=== PATIENT | female | born 1980 | race American Indian/Alaskan Native ===

== ENCOUNTER 2017-02-07 17:07 | Emergency (ER) | payer MEDICAID ==
[2017-02-07] MEDS ORDERED: HYDROGEN PEROXIDE ONE (17:16)
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
[2017-02-07 17:57] LABS: Basophils % (Auto) 0.5 % (0.0-1.8); Eosinophils % (Auto) 0.7 % (0.0-4.3); Hematocrit 36.7 % (30.3-42.9); Hemoglobin 12.1 gm/dl (10.1-14.3); Mean Corpuscular HGB Conc 33 % (30-34); Mean Corpuscular Hemoglobin 30 pg (28-32); Mean Corpuscular Volume 90 fl (79-97); Platelet Count 269 K/mm3 (140-440); Red Blood Count 4.07 M/mm3 (3.65-5.03); Red Cell Distribution Width 14.2 % (13.2-15.2)
[2017-02-07 18:16] LABS: Anion Gap 18 mmol/L; BUN/Creatinine Ratio 12.85; Blood Urea Nitrogen 9 mg/dL (7-17); Calcium 9.3 mg/dL (8.4-10.2); Carbon Dioxide 23 mmol/L (22-30); Chloride 105.4 mmol/L (98-107); Creatine Kinase 66 units/L (30-135); Glucose 122 mg/dL (65-100); Potassium 3.3 mmol/L (3.6-5.0); Sodium 143 mmol/L (137-145)
[2017-02-07 18:20] LABS: INR 0.97 (0.87-1.13)
[2017-02-07 18:21] LABS: Creatine Kinase MB < 1.0 ng/mL (0.0-4.0)
[2017-02-07] MEDS ORDERED: K-DUR PO ONE (20:15)
[2017-02-07] MEDS ORDERED: POTASSIUM CHLORIDE PO ONE (20:17)
[2017-02-07 21:54] VITALS: BP 126/74
--- NOTE | 2017-02-08 08:53 | XRay Report ---
Single view chest: Compared to 11/02/16. History: Shortness of breath. Findings: Normal cardiomediastinal silhouette. Trachea is midline. The tracheostomy tube in normal position. No consolidation, pneumothorax or pleural effusion. Impression: No acute cardiopulmonary findings.
== END 2017-02-07 21:54 | disposition home or self-care (01) ==
LOC: ED 17:07
DX: J95.03 Malfunction of tracheostomy stoma (principal); E87.6 Hypokalemia; I10 Essential (primary) hypertension; R56.9 Unspecified convulsions; Z88.0 Allergy status to penicillin
CPT/HCPCS: 36415; 71010; 80048; 82550; 82553; 84484; 85025; 85610; 93005; 93010

== ENCOUNTER 2017-05-24 02:35 | Emergency (ER) | payer MEDICAID ==
[2017-05-24 04:33] LABS: Basophils % (Auto) 0.3 % (0.0-1.8); Eosinophils % (Auto) 0.7 % (0.0-4.3); Hematocrit 37.9 % (30.3-42.9); Hemoglobin 12.6 gm/dl (10.1-14.3); Mean Corpuscular HGB Conc 33 % (30-34); Mean Corpuscular Hemoglobin 30 pg (28-32); Mean Corpuscular Volume 92 fl (79-97); Platelet Count 244 K/mm3 (140-440); Red Blood Count 4.12 M/mm3 (3.65-5.03); White Blood Count 9.1 K/mm3 (4.5-11.0)
[2017-05-24 04:39] LABS: Alanine Aminotransferase 7 units/L (7-56); Albumin 4.6 g/dL (3.9-5); Albumin/Globulin Ratio 1.2 %; Alkaline Phosphatase 56 units/L (35-129); BUN/Creatinine Ratio 8.57; Blood Urea Nitrogen 6 mg/dL (7-17); Calcium 9.6 mg/dL (8.4-10.2); Carbon Dioxide 31 mmol/L (22-30); Glucose 91 mg/dL (65-100); Total Protein 8.3 g/dL (6.3-8.2)
[2017-05-24 05:02] LABS: Anion Gap 13 mmol/L; Chloride 102.5 mmol/L (98-107); Potassium 4.1 mmol/L (3.6-5.0); Sodium 142 mmol/L (137-145)
[2017-05-24] MEDS ORDERED: ZOFRAN IM ONE (06:28)
[2017-05-24] MEDS ORDERED: LIDOCAINE VISCOUS 2% PO ONE (06:28)
[2017-05-24] MEDS ORDERED: MORPHINE IV ONE (06:28)
--- NOTE | 2017-05-24 06:34 | Emergency Department Report ---
HPI - General Chief Complaint: Dyspnea/Respdistress Time Seen by Provider: 05/24/17 06:13 - HPI HPI: Room 19 The patient is a 37-year-old female presenting with a chief complaint of sore throat. The patient has a history of tracheostomy placed 3 years ago secondary to tracheal damage during intubation for emergency . The patient states yesterday she developed a sore throat with difficulty swallowing. The patient states she has an occasional cough but it hurts when she does. Patient states her cough has been productive of green sputum but this is not a new finding. Patient admits to only having shortness of breath one suctioning. Patient denies shortness of breath at rest. Patient denies chest pain. Patient denies fever, rhinorrhea or sick contacts. Patient states her only complaint is a sore throat at this time. The patient gives her pain a score of 9/10 Location: Throat Duration: Constant since yesterday Quality: Burning/throbbing Severity:9/10 Modifying factors: [see above] Context: [see above] Mode of transportation: [not driving] ED Past Medical Hx - Past Medical History Previous Medical History?: Yes Hx Hypertension: Yes (PIH) Hx Diabetes: Yes (gestational diabetes) Hx Seizures: Yes (with last baby) - Surgical History Past Surgical History?: Yes Additional Surgical History: Tracheostomy 2014 secondary to tracheal damage during intubation for emergency - Family History Family history: no significant - Social History Smoking Status: Never Smoker Substance Use Type: None - Medications Home Medications: Home Medications Medication Instructions Recorded Confirmed Last Taken Type Ibuprofen [Motrin 600 MG tab] 600 mg PO Q8H PRN #30 tablet 12/08/15 Unknown Rx Multivitamin with Iron [Tab-A-Sharmaine 1 each PO DAILY #30 tablet 12/08/15 Unknown Rx with Iron] oxyCODONE /ACETAMINOPHEN [Percocet 1 tab PO Q6HR PRN #30 tablet 12/08/15 Unknown Rx 5/325] Potassium Chloride 20 meq PO QDAY #4 packet 02/07/17 Unknown Rx Azithromycin [Zithromax Z-MITCH] 0 mg PO DAILY #6 tab 05/24/17 Unknown Rx HYDROcodone/APAP 5-325 [[place] 1 - 2 each PO Q6HR PRN #14 tablet 05/24/17 Unknown Rx 5/325] Ibuprofen [Motrin 800 MG tab] 800 mg PO Q8HR PRN #20 tablet 05/24/17 Unknown Rx ED Review of Systems ROS: Stated complaint: THROAT PAIN, SWELLING Other details as noted in HPI Comment: All other systems reviewed and negative Constitutional: denies: chills, fever Eyes: denies: eye pain, eye discharge, vision change ENT: throat pain Respiratory: cough, shortness of breath Cardiovascular: denies: chest pain, palpitations Endocrine: no symptoms reported Gastrointestinal: denies: abdominal pain, nausea, diarrhea Genitourinary: denies: urgency, dysuria, discharge Musculoskeletal: denies: back pain, joint swelling, arthralgia Skin: denies: rash, lesions Neurological: denies: headache, weakness, paresthesias Psychiatric: denies: anxiety, depression Hematological/Lymphatic: denies: easy bleeding, easy bruising Physical Exam - Physical Exam Vital Signs: Vital Signs 05/24/17 05/24/17 05/24/17 02:45 04:55 05:20 Temperature 98.9 F 97.6 F Pulse Rate 67 69 Respiratory 20 20 Rate Blood Pressure 150/105 Blood Pressure 175/95 [Left] O2 Sat by Pulse 100 100 100 Oximetry O2 Sat by Pulse Oximetry [ Assessment] 05/24/17 05:22 Temperature Pulse Rate Respiratory Rate Blood Pressure Blood Pressure [Left] O2 Sat by Pulse Oximetry O2 Sat by Pulse 100 Oximetry [ Assessment] Physical Exam: GENERAL: The patient is well-developed well-nourished female lying on stretcher not appearing to be in acute distress. [] HEENT: Normocephalic. Atraumatic. Extraocular motions are intact. Patient has moist mucous membranes. Mild erythema to the left oropharynx. No exudate seen. Uvula midline NECK: Supple. No meningitic signs are noted. There is no adenopathy noted. CHEST/LUNGS: Clear to auscultation. There is no respiratory distress noted. HEART/CARDIOVASCULAR: Regular. There is no tachycardia. There is no gallop rub or murmur. ABDOMEN: Abdomen is soft, nontender. Patient has normal bowel sounds. There is no abdominal distention. SKIN: There is no rash. There is no edema. There is no diaphoresis. NEURO: The patient is awake, alert, and oriented. The patient is cooperative. MUSCULOSKELETAL: There is no evidence of acute injury. ED Course Vital Signs 05/24/17 05/24/17 05/24/17 02:45 04:55 05:20 Temperature 98.9 F 97.6 F Pulse Rate 67 69 Respiratory 20 20 Rate Blood Pressure 150/105 Blood Pressure 175/95 [Left] O2 Sat by Pulse 100 100 100 Oximetry O2 Sat by Pulse Oximetry [ Assessment] 05/24/17 05:22 Temperature Pulse Rate Respiratory Rate Blood Pressure Blood Pressure [Left] O2 Sat by Pulse Oximetry O2 Sat by Pulse 100 Oximetry [ Assessment] ED Medical Decision Making - Lab Data Result diagrams: 05/24/17 03:27 05/24/17 03:27 Laboratory Tests 05/24/17 05/24/17 05/24/17 03:27 03:27 03:27 WBC 9.1 RBC 4.12 Hgb 12.6 Hct 37.9 MCV 92 MCH 30 MCHC 33 RDW 15.0 Plt Count 244 Lymph % (Auto) 35.3 H [place] % (Auto) 7.9 H Eos % (Auto) 0.7 Baso % (Auto) 0.3 Lymph # 3.2 [place] # 0.7 Eos # 0.1 Baso # 0.0 Seg Neutrophils % 55.8 Seg Neutrophils # 5.1 D-Dimer 398.62 H Sodium 142 Potassium 4.1 Chloride 102.5 Carbon Dioxide 31 H Anion Gap 13 BUN 6 L Creatinine 0.7 Estimated GFR > 60 BUN/Creatinine Ratio 8.57 Glucose 91 Calcium 9.6 Total Bilirubin 0.40 AST 9 ALT 7 Alkaline Phosphatase 56 Troponin T < 0.010 Total Protein 8.3 H Albumin 4.6 Albumin/Globulin Ratio 1.2 - Radiology Data Radiology results: image reviewed (chest x-ray, lateral soft tissue neck x-ray) interpreted by me: Chest x-ray-no focal infiltrates, no pneumothorax Lateral soft tissue neck x-ray-no prevertebral swelling - Medical Decision Making Patient's chief complaint is sore throat. Patient denies shortness of breath at rest or outside of tracheal suctioning. Patient denies chest pain. D-dimer was ordered prior to my arrival. Although it is slightly elevated I do not believe the patient's presentation is consistent with a PE subsequently I will not unnecessarily order a CT angiogram of the chest. I explained this to the patient and family. - Differential Diagnosis pharyngitis, tonsillitis, retropharyngeal abscess Critical care attestation.: If time is entered above; I have spent that time in minutes in the direct care of this critically ill patient, excluding procedure time. ED Disposition Clinical Impression: Pharyngitis, acute Disposition: DC-01 TO HOME OR SELFCARE Is pt being admited?: No Does the pt Need Aspirin: No Condition: Stable Instructions: Pharyngitis (ED) Additional Instructions: Return to the emergency department immediately should you develop worsening symptoms, fever, inability to tolerate food or liquid or any other concerns. Prescriptions: Azithromycin [Zithromax Z-MITCH] 0 mg PO DAILY #6 tab HYDROcodone/APAP 5-325 [[place] 5/325] 1 - 2 each PO Q6HR PRN #14 tablet PRN Reason: Pain Ibuprofen [Motrin 800 MG tab] 800 mg PO Q8HR PRN #20 tablet PRN Reason: Pain Referrals: PRIMARY CARE, [Primary Care Provider] - 3-5 Days VICKIE GARY MD [Staff Physician] - 3-5 Days (Dr. Gary is a patrol deputy sheriff. Please follow up with him for further evaluation) NIR MACKENZIE MD [Staff Physician] - 3-5 Days (Dr. Mackenzie is a primary doctor. Please follow up with him for further evaluation) Time of Disposition: 07:26
--- NOTE | 2017-05-24 07:30 | XRay Report ---
ROUTINE CHEST, TWO VIEWS: HISTORY: Dyspnea. A tracheostomy is in good position. The trachea, heart, mediastinal contour, lung perez and bony thorax are unremarkable. IMPRESSION: Unremarkable chest x-ray. No significant change since 02/07/17.
--- NOTE | 2017-05-24 07:30 | XRay Report ---
AP AND LATERAL SOFT TISSUES OF THE NECK: History: Sore throat, pain, swelling. A tracheostomy appears in adequate position terminating in the mid trachea. The contour of the upper airway appears within normal limits. The epiglottis is not enlarged. No prevertebral soft tissue swelling is apparent. No mass density or foreign body is evident. IMPRESSION: Unremarkable exam.
[2017-05-24 08:31] VITALS: BP 139/84
== END 2017-05-24 08:32 | disposition home or self-care (01) ==
LOC: ED 02:35
DX: J02.9 Acute pharyngitis, unspecified (principal); I10 Essential (primary) hypertension
CPT/HCPCS: 36415; 70360; 71020; 80053; 84484; 85025; 85379; 94760; 96372; 96374; 99285; J2270; J2405

== ENCOUNTER 2017-09-17 07:22 | Emergency (ER) | payer MEDICAID ==
--- NOTE | 2017-09-17 12:20 | Emergency Department Report ---
ED General Adult HPI - General Chief complaint: Neck Pain/Injury Stated complaint: TRACHEOTOMY BLEEDING Time Seen by Provider: 09/17/17 12:14 Source: patient, RN notes reviewed, old records reviewed Mode of arrival: Ambulatory Limitations: No Limitations - History of Present Illness Initial comments: This is a 37-year-old female who was previously unknown to this provider. Patient has a history of indwelling tracheostomy for a few years secondary to tracheal damage during an intubation for an emergency . This was in [place]. The patient does not have a local primary care doctor, biztalk software developer or all source analyst. She has a 6 0 uncuffed tracheostomy tube. Patient does not have any home care services to help clean it, and it was last changed in February. Patient presents to the ER with painless bleeding from tracheostomy site. She reports that she is coughing up blood from her tracheostomy site. She is cleaning it every now and then with peroxide. No headache, chest pain, abdominal pain, shortness of breath, fevers or chills. Her symptoms are constant for the past day or so, they do not have exacerbating or relieving factors. -: Gradual Location: neck Radiation: non-radiation Consistency: constant Improves with: none Worsens with: none Associated Symptoms: cough - Related Data Previous Rx's Medication Instructions Recorded Last Taken Type Ibuprofen [Motrin 600 MG tab] 600 mg PO Q8H PRN #30 tablet 12/08/15 Unknown Rx Multivitamin with Iron [Tab-A-Sharmaine 1 each PO DAILY #30 tablet 12/08/15 Unknown Rx with Iron] oxyCODONE /ACETAMINOPHEN [Percocet 1 tab PO Q6HR PRN #30 tablet 12/08/15 Unknown Rx 5/325] Potassium Chloride 20 meq PO QDAY #4 packet 02/07/17 Unknown Rx Azithromycin [Zithromax Z-MITCH] 0 mg PO DAILY #6 tab 05/24/17 Unknown Rx HYDROcodone/APAP 5-325 [Linn 1 - 2 each PO Q6HR PRN #14 tablet 05/24/17 Unknown Rx 5/325] Ibuprofen [Motrin 800 MG tab] 800 mg PO Q8HR PRN #20 tablet 05/24/17 Unknown Rx Allergies Allergy/AdvReac Type Severity Reaction Status Date / Time Penicillins Allergy Swelling Verified 12/07/15 23:16 ED Review of Systems ROS: Stated complaint: TRACHEOTOMY BLEEDING Other details as noted in HPI Constitutional: denies: fever Eyes: denies: vision change ENT: as per HPI, throat pain. denies: epistaxis, congestion Respiratory: cough Cardiovascular: denies: chest pain Gastrointestinal: denies: nausea, vomiting Genitourinary: denies: dysuria Musculoskeletal: as per HPI Skin: as per HPI Neurological: as per HPI Psychiatric: anxiety ED Past Medical Hx - Past Medical History Hx Hypertension: Yes (PIH) Hx Congestive Heart Failure: No Hx Diabetes: Yes (gestational diabetes) Hx Deep Vein Thrombosis: No Hx Renal Disease: No Hx Sickle Cell Disease: No Hx Seizures: Yes (with last baby) Hx Asthma: No Hx COPD: No Hx HIV: No - Surgical History Additional Surgical History: Tracheostomy 2014 secondary to tracheal damage during intubation for emergency - Social History Smoking Status: Never Smoker Substance Use Type: None - Medications Home Medications: Home Medications Medication Instructions Recorded Confirmed Last Taken Type Ibuprofen [Motrin 600 MG tab] 600 mg PO Q8H PRN #30 tablet 12/08/15 Unknown Rx Multivitamin with Iron [Tab-A-Sharmaine 1 each PO DAILY #30 tablet 12/08/15 Unknown Rx with Iron] oxyCODONE /ACETAMINOPHEN [Percocet 1 tab PO Q6HR PRN #30 tablet 12/08/15 Unknown Rx 5/325] Potassium Chloride 20 meq PO QDAY #4 packet 02/07/17 Unknown Rx Azithromycin [Zithromax Z-MITCH] 0 mg PO DAILY #6 tab 05/24/17 Unknown Rx HYDROcodone/APAP 5-325 [Linn 1 - 2 each PO Q6HR PRN #14 tablet 05/24/17 Unknown Rx 5/325] Ibuprofen [Motrin 800 MG tab] 800 mg PO Q8HR PRN #20 tablet 05/24/17 Unknown Rx ED Physical Exam - General Limitations: No Limitations General appearance: alert, in no apparent distress - Head Head exam: Present: atraumatic, normocephalic - Eye Eye exam: Present: normal appearance, EOMI. Absent: nystagmus - ENT ENT exam: Present: normal exam, normal orophraynx, mucous membranes moist - Neck Neck exam: Present: normal inspection, full ROM, other (there is a 6 uncuffed tracheostomy tube noted in the neck, with no redness, pus or streaking) - Respiratory Respiratory exam: Present: normal lung sounds bilaterally. Absent: respiratory distress, wheezes, rales, rhonchi, stridor, chest wall tenderness, accessory muscle use - Cardiovascular Cardiovascular Exam: Present: regular rate, normal rhythm, normal heart sounds. Absent: systolic murmur, diastolic murmur, rubs, gallop - GI/Abdominal GI/Abdominal exam: Present: soft, normal bowel sounds. Absent: distended, tenderness, guarding, rebound, rigid, pulsatile mass - Extremities Exam Extremities exam: Present: normal inspection, full ROM, normal capillary refill. Absent: pedal edema, joint swelling, calf tenderness - Back Exam Back exam: Present: normal inspection, full ROM. Absent: tenderness, CVA tenderness (R), paraspinal tenderness, vertebral tenderness - Neurological Exam Neurological exam: Present: alert, other (Extraocular movements intact. Tongue midline. No facial droop. Facial sensation intact to light touch in the V1, V2 , V3 distribution bilaterally. 5 and 5 strength in 4 extremities.. Sensation is intact to light touch in 4 extremities.). Absent: motor sensory deficit - Psychiatric Psychiatric exam: Present: normal affect, normal mood - Skin Skin exam: Present: warm, dry, intact, normal color. Absent: rash ED Course Vital Signs 09/17/17 09/17/17 09/17/17 07:29 12:20 12:30 Temperature 98.5 F Pulse Rate 62 Respiratory Rate Blood Pressure 146/93 162/99 Blood Pressure [Left] O2 Sat by Pulse 100 100 100 Oximetry 09/17/17 09/17/17 09/17/17 12:46 13:00 13:04 Temperature 98.2 F Pulse Rate 84 Respiratory 18 Rate Blood Pressure 162/99 171/95 Blood Pressure 151/85 [Left] O2 Sat by Pulse 100 98 99 Oximetry 09/17/17 09/17/17 13:16 13:30 Temperature Pulse Rate Respiratory Rate Blood Pressure 171/95 171/95 Blood Pressure [Left] O2 Sat by Pulse 99 99 Oximetry ED Medical Decision Making - Lab Data Vital Signs 09/17/17 09/17/17 09/17/17 07:29 12:20 12:30 Temperature 98.5 F Pulse Rate 62 Blood Pressure 146/93 162/99 O2 Sat by Pulse 100 100 100 Oximetry - Radiology Data Radiology results: image reviewed interpreted by me: X-ray of the chest demonstrates no acute disease, no pneumonia, a tracheostomy tube is noted to be in appropriate position - Medical Decision Making Differential diagnosis, including but not limited to: Improper tracheostomy care , pneumonia, bronchiectasis, bronchitis Assessment and plan: 37-year-old female with complaint of coughing up blood from her tracheostomy tube. Patient is seen by myself and respiratory therapy. Her tracheostomy tube was suctioned. No blood comes out of it. Her tracheostomy tube is replaced. The patient has not been caring for her tube appropriately. She is not cleaning it daily. She also does not have home health services available to assist in cleaning. I contacted case management to address this. They're going to address it. The patient was educated by respiratory therapy how to clean her tube, how to care for, how often to clean it. She is afebrile with reassuring vital signs with the exception of elevated blood pressure. She does not work or laboratory studies, her x-ray of the chest is unremarkable, and she appears to be quite comfortable playing on a cellular phone, and interacting with a close friend. She will be discharged medically, she is suitable to follow up with outpatient primary care doctor and biztalk software developer. Critical care attestation.: If time is entered above; I have spent that time in minutes in the direct care of this critically ill patient, excluding procedure time. ED Disposition Clinical Impression: Encounter for tracheostomy tube change Disposition: DC-01 TO HOME OR SELFCARE Is pt being admited?: No Does the pt Need Aspirin: No Condition: Good Instructions: Tracheostomy Care (ED), Tracheotomy (ED) Additional Instructions: Continue current outpatient medications. Follow up with a primary care doctor within the next month. Follow up with either a biztalk software developer or all source analyst for continued outpatient care via tracheostomy within the next 6 weeks. Wash the tracheostomy tube at least once daily with gentle water and soap. Use the scrub brush as directed. Do not use peroxide to clean the tube. Return to the ER right away with fevers , chills, chest pain, shortness of breath, intractable nausea or vomiting, confusion, inability to tolerate liquid feeds, weakness/numbness. Referrals: PRIMARY CARE, [Primary Care Provider] - 3-5 Days VICKIE GARY MD [Staff Physician] - 3-5 Days ISRAEL CLARK MD [Staff Physician] - 3-5 Days ARLENE REYNA MD [Staff Physician] - 3-5 Days
--- NOTE | 2017-09-17 13:25 | XRay Report ---
Single view chest: Compared to 05/24/17. History: Coughing up blood. Tracheostomy. Findings: Normal cardiomediastinal silhouette. Trachea is midline. No consolidation, pneumothorax or pleural effusion. Impression: No acute cardiopulmonary findings.
[2017-09-17 13:42] VITALS: BP 171/95
== END 2017-09-17 13:41 | disposition home or self-care (01) ==
LOC: ED 07:22
DX: J95.01 Hemorrhage from tracheostomy stoma (principal); I10 Essential (primary) hypertension
CPT/HCPCS: 71010

== ENCOUNTER 2017-09-20 02:16 | Emergency (ER) | payer MEDICAID ==
[2017-09-20 03:09] LABS: Basophils % (Auto) 0.9 % (0.0-1.8); Eosinophils % (Auto) 1.9 % (0.0-4.3); Hematocrit 36.9 % (30.3-42.9); Mean Corpuscular HGB Conc 33 % (30-34); Mean Corpuscular Hemoglobin 30 pg (28-32); Mean Corpuscular Volume 93 fl (79-97); Platelet Count 288 K/mm3 (140-440); Red Blood Count 3.97 M/mm3 (3.65-5.03); Red Cell Distribution Width 14.1 % (13.2-15.2); White Blood Count 7.4 K/mm3 (4.5-11.0)
[2017-09-20 03:23] LABS: BUN/Creatinine Ratio 12; Blood Urea Nitrogen 7 mg/dL (7-17); Calcium 9.5 mg/dL (8.4-10.2); Carbon Dioxide 29 mmol/L (22-30); Glucose 101 mg/dL (65-100)
[2017-09-20 03:24] LABS: Anion Gap 16 mmol/L; Chloride 100.6 mmol/L (98-107); Potassium 3.6 mmol/L (3.6-5.0); Sodium 142 mmol/L (137-145)
--- NOTE | 2017-09-20 03:48 | XRay Report ---
FINAL REPORT EXAM: XR NECK SOFT TISSUE HISTORY: neck swelling TECHNIQUE: AP and lateral views of the soft tissues of the neck were obtained. FINDINGS: The hypopharynx appears normal. The epiglottis is not enlarged. The subglottic airway appears normal. The pre vertebral soft tissues are normal in thickness. There is no evidence of radiopaque foreign body. There is a tracheostomy tube in good position. The skeletal structures appear normal. IMPRESSION: Tracheostomy tube in good position. Otherwise unremarkable exam.
[2017-09-20] MEDS ORDERED: DILAUDID IV ONE (06:37)
--- NOTE | 2017-09-20 06:41 | Emergency Department Report ---
HPI - General Chief Complaint: Neck Pain/Injury Time Seen by Provider: 09/20/17 06:15 - HPI HPI: This is a 37-year-old Afro-[place] female presents to the emergency department from home with complaint of some bleeding from her tracheostomy that occurs when she coughs or suctions. She is from [place] and has had this tracheostomy in place for a couple of years since there was some complications from an intubation from an emergency that she had down there. The patient was also here on Wednesday, 3-4 days ago, for similar symptoms. Since she is not from this area, she does not yet have a primary care doctor, certified paralegal or anyone for immediate follow-up. She denies any chest pain, shortness of breath, nausea, vomiting. She has not taken anything for her symptoms prior to presentation. ED Past Medical Hx - Past Medical History Hx Hypertension: Yes (PIH) Hx Congestive Heart Failure: No Hx Diabetes: Yes (gestational diabetes) Hx Deep Vein Thrombosis: No Hx Renal Disease: No Hx Sickle Cell Disease: No Hx Seizures: Yes (with last baby) Hx Asthma: No Hx COPD: No Hx HIV: No - Surgical History Additional Surgical History: 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 for emergency - Social History Smoking Status: Never Smoker Substance Use Type: None - Medications Home Medications: Home Medications Medication Instructions Recorded Confirmed Last Taken Type Ibuprofen [Motrin 600 MG tab] 600 mg PO Q8H PRN #30 tablet 12/08/15 Unknown Rx Multivitamin with Iron [Tab-A-Sharmaine 1 each PO DAILY #30 tablet 12/08/15 Unknown Rx with Iron] oxyCODONE /ACETAMINOPHEN [Percocet 1 tab PO Q6HR PRN #30 tablet 12/08/15 Unknown Rx 5/325] Potassium Chloride 20 meq PO QDAY #4 packet 02/07/17 Unknown Rx Azithromycin [Zithromax Z-MITCH] 0 mg PO DAILY #6 tab 05/24/17 Unknown Rx Ibuprofen [Motrin 800 MG tab] 800 mg PO Q8HR PRN #20 tablet 05/24/17 Unknown Rx HYDROcodone/APAP 5-325 [Jennings 1 each PO Q6HR PRN #10 tablet 09/20/17 Unknown Rx 5-325 mg TAB] ED Review of Systems ROS: Stated complaint: NECK SWELLING,TRACHE BLEEDING Other details as noted in HPI Comment: All other systems reviewed and negative Constitutional: denies: chills, fever Eyes: denies: eye pain, eye discharge, vision change ENT: throat pain (tightness to neck, bleeding from trach). denies: ear pain Respiratory: denies: cough, shortness of breath, wheezing Cardiovascular: denies: chest pain, palpitations Gastrointestinal: denies: abdominal pain, nausea, diarrhea Genitourinary: denies: urgency, dysuria, discharge Musculoskeletal: denies: back pain, joint swelling, arthralgia Skin: denies: rash, lesions Neurological: denies: headache, weakness, paresthesias Physical Exam - Physical Exam Vital Signs: Vital Signs 09/20/17 09/20/17 09/20/17 02:19 02:40 05:31 Temperature 99.1 F 99.1 F 98.2 F Pulse Rate 69 66 77 Respiratory 16 18 Rate Blood Pressure 144/90 144/90 Blood Pressure 148/96 [Left] O2 Sat by Pulse 99 100 100 Oximetry O2 Sat by Pulse Oximetry [ Assessment] 09/20/17 09/20/17 09/20/17 05:33 05:50 06:30 Temperature Pulse Rate 65 Respiratory 16 16 Rate Blood Pressure Blood Pressure 153/99 [Left] O2 Sat by Pulse 100 100 Oximetry O2 Sat by Pulse 100 Oximetry [ Assessment] Physical Exam: GENERAL: The patient is well-developed well-nourished. HENT: Normocephalic. Atraumatic. Patient has moist mucous membranes. EYES: Extraocular motions are intact. Pupils equal reactive to light bilaterally. NECK: Supple. Trachea is midline. There is a tracheostomy and collar in place. There is a small amount of blood-tinged sputum seen in the tracheostomy tube. CHEST/LUNGS: Clear to auscultation. There is no respiratory distress noted. HEART/CARDIOVASCULAR: Regular. There is no tachycardia. There is no gallop rub or murmur. ABDOMEN: Abdomen is soft, nontender. Patient has normal bowel sounds. There is no abdominal distention. SKIN: Skin is warm and dry. NEURO: The patient is awake, alert, and oriented. The patient is cooperative. The patient has no focal neurologic deficits. MUSCULOSKELETAL: There is no tenderness or deformity. There is no limitation range of motion. There is no evidence of acute injury. ED Course Vital Signs 09/20/17 09/20/17 09/20/17 02:19 02:40 05:31 Temperature 99.1 F 99.1 F 98.2 F Pulse Rate 69 66 77 Respiratory 16 18 Rate Blood Pressure 144/90 144/90 Blood Pressure 148/96 [Left] O2 Sat by Pulse 99 100 100 Oximetry O2 Sat by Pulse Oximetry [ Assessment] 09/20/17 09/20/17 09/20/17 05:33 05:50 06:30 Temperature Pulse Rate 65 Respiratory 16 16 Rate Blood Pressure Blood Pressure 153/99 [Left] O2 Sat by Pulse 100 100 Oximetry O2 Sat by Pulse 100 Oximetry [ Assessment] ED Medical Decision Making - Lab Data Result diagrams: 09/20/17 02:55 09/20/17 02:55 - Radiology Data Radiology results: report reviewed, image reviewed interpreted by me: X-ray of the neck does not show any foreign body, signs of obstruction and the tracheostomy appears to be in place. EXAM: CT NECK WO CON HISTORY: tracheostomy, neck tightness, bleeding from trach TECHNIQUE: Routine axial imaging was obtained of the soft tissues of the neck without IV contrast with sagittal and coronal reconstructions. FINDINGS: There is a tracheostomy tube in good position. The overall airway otherwise appears normal. The thyroid gland appears normal. The retropharyngeal space appears normal. The parotid and submandibular glands appear normal. There is no evidence of pathologically enlarged lymph nodes in the neck. There benign-appearing lymph nodes in the submandibular chains bilaterally. Along the skullbase the visualized sinuses are clear. The mastoid air cells are well pneumatized. The lung apices are clear. The skeletal structures are unremarkable. IMPRESSION: Tracheostomy appears in good position. No source is identified to account for the patient's bleeding. No acute process identified in the soft tissues of the neck. - Medical Decision Making This is a 37-year-old female with a chronic tracheostomy, tube and collar who has been having some issues with some bleeding from the trach with coughing and suction. She was seen here for similar a few days ago but has not yet been able to see a certified paralegal. Vital signs stable throughout her ED course including being afebrile. Labs are unremarkable including no anemia secondary to this bleeding. An x-ray was done that does not show any acute process. Since this is the second visit for her same symptoms, a CT of the neck was done that shows the tracheostomy in appropriate place without any source of the bleeding. Respiratory therapy came down and did some tracheostomy care. Otherwise the patient appears stable and safe for discharge home at this time. She was once again given referrals for ENT and encouraged to return to the emergency Department with any worsening bleeding, any respiratory distress, worsening of her symptoms or any acute distress. Discharge instructions were given within the emergency department and all questions have been answered. Critical Care Time: No Critical care attestation.: If time is entered above; I have spent that time in minutes in the direct care of this critically ill patient, excluding procedure time. ED Disposition Clinical Impression: Tracheostomy care, Neck tightness Disposition: TO HOME OR SELFCARE Is pt being admited?: No Condition: Stable Instructions: Tracheostomy Care (ED) Additional Instructions: Please follow up with a primary care physician in the next few days. I have given him multiple referrals for ear nose throat/otolaryngology physicians to follow up regarding your tracheostomy and recent bleeding and/or discomfort. Return to the emergency department with any worsening of your symptoms or any acute distress. You have been prescribed a medication that is sedating and therefore should not be taken prior to driving, working, and responsible for children and in no way should be mixed with alcohol of any quantity. Prescriptions: HYDROcodone/APAP 5-325 [Jennings 5-325 mg TAB] 1 each PO Q6HR PRN #10 tablet PRN Reason: Pain Referrals: PRIMARY MD ERIC [Primary Care Provider] - 3-5 Days CHRYSTAL GOLDSMITH MD [Staff Physician] - 3-5 Days RICHI ALLEN MD [Staff Physician] - 3-5 Days ISRAEL CLARK MD [Staff Physician] - 3-5 Days Time of Disposition: 08:57
[2017-09-20] MEDS ORDERED: PERCOCET 5/325 PO ONE (06:49)
[2017-09-20] MEDS ORDERED: PERCOCET 5/325 ONE (06:50)
--- NOTE | 2017-09-20 07:14 | Cat Scan Report ---
FINAL REPORT EXAM: CT NECK WO CON HISTORY: tracheostomy, neck tightness, bleeding from trach TECHNIQUE: Routine axial imaging was obtained of the soft tissues of the neck without IV contrast with sagittal and coronal reconstructions. FINDINGS: There is a tracheostomy tube in good position. The overall airway otherwise appears normal. The thyroid gland appears normal. The retropharyngeal space appears normal. The parotid and submandibular glands appear normal. There is no evidence of pathologically enlarged lymph nodes in the neck. There benign-appearing lymph nodes in the submandibular chains bilaterally. Along the skullbase the visualized sinuses are clear. The mastoid air cells are well pneumatized. The lung apices are clear. The skeletal structures are unremarkable. IMPRESSION: Tracheostomy appears in good position. No source is identified to account for the patient's bleeding. No acute process identified in the soft tissues of the neck.
[2017-09-20] MEDS ORDERED: HYDROGEN PEROXIDE ONE (08:38)
[2017-09-20] MEDS ORDERED: HYDROGEN PEROXIDE TP ONE (08:38)
[2017-09-20 09:07] VITALS: BP 133/88
== END 2017-09-20 09:06 | disposition home or self-care (01) ==
LOC: ED 02:16
DX: J95.01 Hemorrhage from tracheostomy stoma (principal); M43.6 Torticollis; I10 Essential (primary) hypertension
CPT/HCPCS: 36415; 70360; 70490; 80048; 84703; 85025

== ENCOUNTER 2018-03-29 18:50 | Emergency (ER) | payer MEDICAID | END 2018-03-29 19:50 | disposition left against medical advice (07) | LOC: ED 18:50 | DX: R42 Dizziness and giddiness (principal); M79.1 Myalgia; Z88.0 Allergy status to penicillin; Z53.21 Procedure and treatment not carried out due to patient leaving prior to being seen by health care provider ==

== ENCOUNTER 2018-04-12 23:26 | Emergency (ER) | payer SELFPAY ==
[2018-04-13 02:22] VITALS: BP 124/88
== END 2018-04-13 07:15 | disposition left against medical advice (07) ==
LOC: ED 23:26
DX: J02.9 Acute pharyngitis, unspecified (principal); Z53.21 Procedure and treatment not carried out due to patient leaving prior to being seen by health care provider
CPT/HCPCS: 87116; 87430

== ENCOUNTER 2018-05-20 17:38 | Emergency (ER) | payer SELFPAY ==
--- NOTE | 2018-05-21 01:05 | Emergency Department Report ---
ED ENT HPI - General Chief complaint: Dental/Oral Stated complaint: TOOTHACHE Time Seen by Provider: 05/21/18 00:50 Source: patient, family Mode of arrival: Ambulatory Limitations: No Limitations - History of Present Illness Initial comments: This is 38-year-old female here report that she is having right upper tooth pain and facial pain from dental problems. She says she might be but she does not know how far she is. She is not having any related problems. Last initial period was exposed 10/27/2018. She says she does not have [facility]PORT [facility]ER or primary care physician. Denies any abdominal or back pain. Denies any vaginal bleed or discharge. Denies any nausea or vomiting. Denies any fever or chills. Denies any sore throat, nasal congestion or runny nose. Denies any drooling. Pain is 10/10 and aching and exacerbated by eating and no alleviating factor. She says she is taking an [id number] pain medication without any relief. This started 2 days ago. MD complaint: tooth pain Onset/Timin -: days(s) Location: tooth # 1 - Tooth #1 and 2 with pain. Severity: severe Severity scale (0 -10): 10 Quality: aching Improves with: none Worsens with: eating Context- Dental: history of dental caries, poor dental care Associated Symptoms: toothache. denies: fever, cough, gum swelling, pain with swallowing, sore throat, tinnitus, hearing loss, discharge from ear, rhinorrhea - Related Data Previous Rx's Medication Instructions Recorded Last Taken Type Ibuprofen [Motrin 600 MG tab] 600 mg PO Q8H PRN #30 tablet 12/08/15 Unknown Rx Multivitamin with Iron [Tab-A-Sharmaine 1 each PO DAILY #30 tablet 12/08/15 Unknown Rx with Iron] oxyCODONE /ACETAMINOPHEN [Percocet 1 tab PO Q6HR PRN #30 tablet 12/08/15 Unknown Rx 5/325] Potassium Chloride 20 meq PO QDAY #4 packet 02/07/17 Unknown Rx Azithromycin [Zithromax Z-MITCH] 0 mg PO DAILY #6 tab 05/24/17 Unknown Rx Ibuprofen [Motrin 800 MG tab] 800 mg PO Q8HR PRN #20 tablet 05/24/17 Unknown Rx HYDROcodone/APAP 5-325 [[place] 1 each PO Q6HR PRN #10 tablet 09/20/17 Unknown Rx 5-325 mg TAB] Acetaminophen 20 ml PO Q8H PRN #300 oral.susp 05/21/18 Unknown Rx Acetaminophen with Codeine 5 ml PO Q12H PRN 2 Days #20 05/21/18 Unknown Rx [Acetaminop-Codeine 120-12 mg/5] solution Clindamycin Palmitate HCl 20 ml PO Q8H 10 Days #600 ml 05/21/18 Unknown Rx [Clindamycin Pediatric] Allergies Allergy/AdvReac Type Severity Reaction Status Date / Time Penicillins Allergy Swelling Verified 12/07/15 23:16 ED Dental HPI - General Chief complaint: Dental/Oral Stated complaint: TOOTHACHE Time Seen by Provider: 05/21/18 00:50 Source: patient Mode of arrival: Ambulatory Limitations: No Limitations - Related Data Previous Rx's Medication Instructions Recorded Last Taken Type Ibuprofen [Motrin 600 MG tab] 600 mg PO Q8H PRN #30 tablet 12/08/15 Unknown Rx Multivitamin with Iron [Tab-A-Sharmaine 1 each PO DAILY #30 tablet 12/08/15 Unknown Rx with Iron] oxyCODONE /ACETAMINOPHEN [Percocet 1 tab PO Q6HR PRN #30 tablet 12/08/15 Unknown Rx 5/325] Potassium Chloride 20 meq PO QDAY #4 packet 02/07/17 Unknown Rx Azithromycin [Zithromax Z-MITCH] 0 mg PO DAILY #6 tab 05/24/17 Unknown Rx Ibuprofen [Motrin 800 MG tab] 800 mg PO Q8HR PRN #20 tablet 05/24/17 Unknown Rx HYDROcodone/APAP 5-325 [[place] 1 each PO Q6HR PRN #10 tablet 09/20/17 Unknown Rx 5-325 mg TAB] Acetaminophen 20 ml PO Q8H PRN #300 oral.susp 05/21/18 Unknown Rx Acetaminophen with Codeine 5 ml PO Q12H PRN 2 Days #20 05/21/18 Unknown Rx [Acetaminop-Codeine 120-12 mg/5] solution Clindamycin Palmitate HCl 20 ml PO Q8H 10 Days #600 ml 05/21/18 Unknown Rx [Clindamycin Pediatric] Allergies Allergy/AdvReac Type Severity Reaction Status Date / Time Penicillins Allergy Swelling Verified 12/07/15 23:16 ED Review of Systems ROS: Stated complaint: TOOTHACHE Other details as noted in HPI Constitutional: denies: chills, fever Eyes: denies: eye discharge ENT: dental pain. denies: ear pain, throat pain, congestion Respiratory: other (tracheostomy). denies: cough, shortness of breath, SOB with exertion, SOB at rest, wheezing Cardiovascular: denies: chest pain, palpitations Gastrointestinal: denies: nausea, vomiting Musculoskeletal: denies: arthralgia Skin: denies: rash, lesions Neurological: denies: headache ED Past Medical Hx - Past Medical History Previous Medical History?: Yes Hx Hypertension: Yes (PIH) Hx Congestive Heart Failure: No Hx Diabetes: Yes (gestational diabetes) Hx Deep Vein Thrombosis: No Hx Renal Disease: No Hx Sickle Cell Disease: No Hx Seizures: Yes (with last baby) Hx Asthma: No Hx COPD: No Hx HIV: No - Surgical History Past Surgical History?: Yes Additional Surgical History: 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 for emergency - Family History Family history: no significant - Social History Smoking Status: Never Smoker Substance Use Type: None - Medications Home Medications: Home Medications Medication Instructions Recorded Confirmed Last Taken Type Ibuprofen [Motrin 600 MG tab] 600 mg PO Q8H PRN #30 tablet 12/08/15 Unknown Rx Multivitamin with Iron [Tab-A-Sharmaine 1 each PO DAILY #30 tablet 12/08/15 Unknown Rx with Iron] oxyCODONE /ACETAMINOPHEN [Percocet 1 tab PO Q6HR PRN #30 tablet 12/08/15 Unknown Rx 5/325] Potassium Chloride 20 meq PO QDAY #4 packet 02/07/17 Unknown Rx Azithromycin [Zithromax Z-MITCH] 0 mg PO DAILY #6 tab 05/24/17 Unknown Rx Ibuprofen [Motrin 800 MG tab] 800 mg PO Q8HR PRN #20 tablet 05/24/17 Unknown Rx HYDROcodone/APAP 5-325 [[place] 1 each PO Q6HR PRN #10 tablet 09/20/17 Unknown Rx 5-325 mg TAB] Acetaminophen 20 ml PO Q8H PRN #300 oral.susp 05/21/18 Unknown Rx Acetaminophen with Codeine 5 ml PO Q12H PRN 2 Days #20 05/21/18 Unknown Rx [Acetaminop-Codeine 120-12 mg/5] solution Clindamycin Palmitate HCl 20 ml PO Q8H 10 Days #600 ml 05/21/18 Unknown Rx [Clindamycin Pediatric] ED Physical Exam - General Limitations: No Limitations General appearance: alert, in no apparent distress - Head Head exam: Present: atraumatic, normocephalic, normal inspection - Eye Eye exam: Present: normal appearance, PERRL, EOMI Pupils: Present: normal accommodation - ENT ENT exam: Present: normal orophraynx, mucous membranes moist, TM's normal bilaterally, normal external ear exam - Expanded ENT Exam Expanded Ear exam: Present: normal external inspection Mouth exam: Present: normal external inspection Teeth exam: Present: normal inspection, dental caries (bilateral upper and lower back tooth), dental tenderness # (#1 and 2), gingival enlargement 1 - Dental Tenderness (#1 and #2), Other (widespread dental caries) Throat exam: Positive: normal inspection - Neck Neck exam: Present: normal inspection, full ROM. Absent: tenderness, lymphadenopathy - Respiratory Respiratory exam: Present: other (patient with long-term tracheostomy). Absent : respiratory distress, wheezes, rales, rhonchi, stridor, chest wall tenderness , accessory muscle use, decreased breath sounds, prolonged expiratory - Cardiovascular Cardiovascular Exam: Present: regular rate, normal rhythm, normal heart sounds, gallop. Absent: systolic murmur, diastolic murmur - Neurological Exam Neurological exam: Present: alert, oriented X3, normal gait - Psychiatric Psychiatric exam: Present: normal affect, normal mood - Skin Skin exam: Present: warm, dry, intact, normal color. Absent: rash ED Course Vital Signs 05/20/18 05/21/18 18:56 02:10 Temperature 99.4 F Pulse Rate 69 76 Respiratory 20 16 Rate Blood Pressure 161/97 Blood Pressure 138/78 [Left] O2 Sat by Pulse 99 100 Oximetry - Reevaluation(s) Reevaluation #1: 05/21/18 01:30 She received clindamycin 600 mg IM and Tylenol plain manages 975 mg by mouth for toothache and to treat gingivitis and dental caries. She had no adverse reaction from medication. 05/21/18 01:41 ED Medical Decision Making - Medical Decision Making This is a 38-year-old female complaining of a toothache. She does not have a primary care or dentist. She is here to be evaluated. Patient was examined by myself and she was found to have gingivitis, dental caries and toothache. Physical exam is normal except for mouth exam the dental problems. Her mouth is moist, orally was patent and uvula is midline. Tooth # 1 and 2 with tenderness without any induration .dental caries on both sides. Patient is given clindamycin 600 mg IM and emergency room. She was also given Tylenol 975 mg by mouth. Patient also reports that she might be but she does not have any related symptoms. I discussed with her diagnosis treatment plan and she is to follow-up at [facility] to call to schedule an appointment in 3 days she was understanding. I also gave her referral to Dr. Carline Lujan [facility] or [facility] for primary care and her EXPORT P[facility]ER.. I discussed oral care to include Flossing, using Listerine mouthwash and explained medication, diagnosis and treatment plan surgery was understanding. Discharged home in stable condition, vital signs are stable she's afebrile and pain is better. With Tylenol elixir, Tylenol with Codeine and clindamycin elixir. - Differential Diagnosis sinusitis, tooth abscess, gingivitis, dental caries, tooth FX,toothace Critical care attestation.: If time is entered above; I have spent that time in minutes in the direct care of this critically ill patient, excluding procedure time. ED Disposition Clinical Impression: Toothache, Dental caries, Gingivitis Disposition: - TO HOME OR SELFCARE Is pt being admited?: No Does the pt Need Aspirin: No Condition: Stable Instructions: Dental Caries (ED), Gingivitis (ED), Toothache (ED) Additional Instructions: Please rinse your mouth of fluid blistering mouthwash 3 times a day Try to floss twice daily Follow up with [facility] in 3 days, these call and schedule an appointment. Take clindamycin for dental cavities, toothache and mild inflammation of the gum. Take Tylenol plain for toothache. Please follow up with Dr. Carline Lujan [facility] for check up. Prescriptions: Acetaminophen 20 ml PO Q8H PRN #300 oral.susp PRN Reason: toothache Acetaminophen with Codeine [Acetaminop-Codeine 120-12 mg/5] 5 ml PO Q12H PRN 2 Days #20 solution PRN Reason: severe toothache Clindamycin Palmitate HCl [Clindamycin Pediatric] 20 ml PO Q8H 10 Days #600 ml Referrals: PRIMARY CAREMD [Primary Care Provider] - 05/24/18 [facility] [Outside] - 05/24/18 CARLINE LUJAN MD [Staff Physician] - 05/23/18 [facility] [Outside] - 05/23/18 Forms: Accompanied Note, Work/School Release Form(ED)
[2018-05-21] MEDS ORDERED: CLEOCIN PO ONE (01:07)
[2018-05-21] MEDS ORDERED: TYLENOL PO ONE (01:07)
[2018-05-21] MEDS ORDERED: CLEOCIN IM ONE (01:25)
[2018-05-21 02:11] VITALS: BP 138/78
== END 2018-05-21 02:18 | disposition home or self-care (01) ==
LOC: ED 17:38
DX: K02.9 Dental caries, unspecified (principal); K05.10 Chronic gingivitis, plaque induced; I10 Essential (primary) hypertension; E11.9 Type 2 diabetes mellitus without complications; Z88.0 Allergy status to penicillin
CPT/HCPCS: 96372; 99282

== ENCOUNTER 2018-06-15 11:55 | Emergency (ER) | payer SELFPAY ==
[2018-06-15 12:59] VITALS: BP 164/99
[2018-06-15 13:41] LABS: Bacteria,Urine 1+ /HPF (Negative); Bilirubin,Urine NEG (Negative); Blood,Urine MOD (Negative); Color,Urine Yellow (Yellow); Protein,Urine <15 mg/dL mg/dL (Negative); Urobilinogen,Urine < 2.0 mg/dL (<2.0)
[2018-06-15 13:46] LABS: HCG Qualitative,Urine Negative (Negative)
== END 2018-06-15 13:51 ==
LOC: ED 11:55
DX: N93.9 Abnormal uterine and vaginal bleeding, unspecified (principal); Z53.21 Procedure and treatment not carried out due to patient leaving prior to being seen by health care provider
CPT/HCPCS: 81001; 81025

== ENCOUNTER 2020-11-16 15:52 | Emergency (ER) | payer OTHER ==
[2020-11-16 16:09] VITALS: BP 123/84
--- NOTE | 2020-11-16 16:19 | Event Note ---
ED Screening Note Date of service: 11/16/20 Time: 16:19 ED Screening Note: Patient complains of cough, fever, and congestion x4 days Heart rate of 115 noted with a low-grade fever of 99.9 This initial assessment/diagnostic orders/clinical plan/treatment(s) is/are subject to change based on patients health status, clinical progression and re- assessment by fellow clinical providers in the ED. Further treatment and workup at subsequent clinical providers discretion. Patient/guardian urged not to elope from the ED as their condition may be serious if not clinically assessed and managed. Initial orders include: Labs X-ray
--- NOTE | 2020-11-16 16:56 | XRay Report ---
CHEST 2 VIEWS INDICATION: cough, fever. COMPARISON: 09/17/2017. FINDINGS: Support devices: Tracheostomy catheter in satisfactory position. Heart: Within normal limits. Lungs/Pleura: No acute air space or interstitial disease. No significant pleural effusion. IMPRESSION: No acute findings. Signer Name: Maurice Gutierres MD Signed: 11/16/2020 4:51 PM Workstation Name: [id number]
[2020-11-16 17:22] LABS: Basophils % (Auto) 0.4 % (0.0-1.8); Eosinophils % (Auto) 0.1 % (0.0-4.3); Hematocrit 36.5 % (30.3-42.9); Hemoglobin 12.1 gm/dl (10.1-14.3); Lymphocytes # (Auto) 1.4 K/mm3 (1.2-5.4); Lymphocytes % (Auto) 37.8 % (13.4-35.0); Mean Corpuscular HGB Conc 33 % (30-34); Mean Corpuscular Volume 94 fl (79-97); Monocytes # (Auto) 0.3 K/mm3 (0.0-0.8); Monocytes % (Auto) 8.3 % (0.0-7.3); Platelet Count 175 K/mm3 (140-440); Red Cell Distribution Width 14.1 % (13.2-15.2)
[2020-11-16 17:25] LABS: Alanine Aminotransferase 17 units/L (7-56); BUN/Creatinine Ratio 8; Blood Urea Nitrogen 6 mg/dL (7-17); Calcium 8.7 mg/dL (8.4-10.2); Hemolysis Index 13
--- NOTE | 2020-11-16 17:56 | Emergency Department Report ---
ED General Adult HPI - General Chief complaint: Fever Stated complaint: EAR PAIN/COUGH/HEADACHE Time Seen by Provider: 11/16/20 16:18 Source: patient Mode of arrival: Ambulatory Limitations: No Limitations - History of Present Illness Initial comments: 40-year-old -[place] female patient complains of cough, fever, and congestion x4 days. Patient has history of diabetes, hypertension has a chronic trach in place. She denies any shortness of breath or chest pain. No known recent sick contacts per patient. - Related Data Previous Rx's Medication Instructions Recorded Last Taken Type Ibuprofen [Motrin 600 MG tab] 600 mg PO Q8H PRN #30 tablet 12/08/15 Unknown Rx Multivitamin with Iron [Tab-A-Sharmaine 1 each PO DAILY #30 tablet 12/08/15 Unknown Rx with Iron] oxyCODONE /ACETAMINOPHEN [Percocet 1 tab PO Q6HR PRN #30 tablet 12/08/15 Unknown Rx 5/325] Potassium Chloride 20 meq PO QDAY #4 packet 02/07/17 Unknown Rx Azithromycin [Zithromax Z-MITCH] 0 mg PO DAILY #6 tab 05/24/17 Unknown Rx Ibuprofen [Motrin 800 MG tab] 800 mg PO Q8HR PRN #20 tablet 05/24/17 Unknown Rx HYDROcodone/APAP 5-325 [[place] 1 each PO Q6HR PRN #10 tablet 09/20/17 Unknown Rx 5-325 mg TAB] Acetaminophen 20 ml PO Q8H PRN #300 oral.susp 05/21/18 Unknown Rx Acetaminophen with Codeine 5 ml PO Q12H PRN 2 Days #20 05/21/18 Unknown Rx [Acetaminop-Codeine 120-12 mg/5] solution Clindamycin Palmitate HCl 20 ml PO Q8H 10 Days #600 ml 05/21/18 Unknown Rx [Clindamycin Pediatric] Doxycycline Hyclate 100 mg PO BID 10 Days #20 tablet. 11/16/20 Unknown Rx Ibuprofen [Motrin 800 MG tab] 800 mg PO Q8HR PRN #20 tablet 11/16/20 Unknown Rx Allergies Allergy/AdvReac Type Severity Reaction Status Date / Time Penicillins Allergy Swelling Verified 12/07/15 23:16 ED Review of Systems ROS: Stated complaint: EAR PAIN/COUGH/HEADACHE Other details as noted in HPI Constitutional: chills, fever, malaise. denies: diaphoresis, weakness ENT: denies: throat pain Respiratory: cough. 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 - Social History Smoking Status: Never Smoker - Medications Home Medications: Home Medications Medication Instructions Recorded Confirmed Last Taken Type Ibuprofen [Motrin 600 MG tab] 600 mg PO Q8H PRN #30 tablet 12/08/15 Unknown Rx Multivitamin with Iron [Tab-A-Sharmaine 1 each PO DAILY #30 tablet 12/08/15 Unknown Rx with Iron] oxyCODONE /ACETAMINOPHEN [Percocet 1 tab PO Q6HR PRN #30 tablet 12/08/15 Unknown Rx 5/325] Potassium Chloride 20 meq PO QDAY #4 packet 02/07/17 Unknown Rx Azithromycin [Zithromax Z-MITCH] 0 mg PO DAILY #6 tab 05/24/17 Unknown Rx Ibuprofen [Motrin 800 MG tab] 800 mg PO Q8HR PRN #20 tablet 05/24/17 Unknown Rx HYDROcodone/APAP 5-325 [[place] 1 each PO Q6HR PRN #10 tablet 09/20/17 Unknown Rx 5-325 mg TAB] Acetaminophen 20 ml PO Q8H PRN #300 oral.susp 05/21/18 Unknown Rx Acetaminophen with Codeine 5 ml PO Q12H PRN 2 Days #20 05/21/18 Unknown Rx [Acetaminop-Codeine 120-12 mg/5] solution Clindamycin Palmitate HCl 20 ml PO Q8H 10 Days #600 ml 05/21/18 Unknown Rx [Clindamycin Pediatric] Doxycycline Hyclate 100 mg PO BID 10 Days #20 tablet. 11/16/20 Unknown Rx Ibuprofen [Motrin 800 MG tab] 800 mg PO Q8HR PRN #20 tablet 11/16/20 Unknown Rx ED Physical Exam - General Limitations: No Limitations General appearance: alert, in no apparent distress - Head Head exam: Present: atraumatic, normocephalic - Eye Eye exam: Present: normal appearance. Absent: scleral icterus - ENT ENT exam: Present: other (Tracheostomy noted) - Neck Neck exam: Present: full ROM. Absent: tenderness - Respiratory Respiratory exam: Present: normal lung sounds bilaterally. Absent: respiratory distress - Cardiovascular Cardiovascular Exam: Present: regular rate, normal rhythm. Absent: systolic murmur, diastolic murmur, rubs, gallop - Extremities Exam Extremities exam: Present: full ROM - Back Exam Back exam: Present: normal inspection - Neurological Exam Neurological exam: Present: alert, oriented X3 - Psychiatric Psychiatric exam: Present: normal affect, normal mood - Skin Skin exam: Present: warm, dry, intact, normal color. Absent: rash ED Course Vital Signs 11/16/20 16:08 Temperature 99.9 F H Pulse Rate 115 H Respiratory 18 Rate Blood Pressure 123/84 O2 Sat by Pulse 97 Oximetry ED Medical Decision Making - Lab Data Result diagrams: 11/16/20 16:32 11/16/20 16:32 Lab Results 11/16/20 11/16/20 Range/Units 16:32 16:32 WBC 3.7 L (4.5-11.0) K/mm3 RBC 3.90 (3.65-5.03) M/mm3 Hgb 12.1 (10.1-14.3) gm/dl Hct 36.5 (30.3-42.9) % MCV 94 (79-97) fl MCH 31 (28-32) pg MCHC 33 (30-34) % RDW 14.1 (13.2-15.2) % Plt Count 175 (140-440) K/mm3 Lymph % (Auto) 37.8 H (13.4-35.0) % [place] % (Auto) 8.3 H (0.0-7.3) % Eos % (Auto) 0.1 (0.0-4.3) % Baso % (Auto) 0.4 (0.0-1.8) % Lymph # (Auto) 1.4 (1.2-5.4) K/mm3 [place] # (Auto) 0.3 (0.0-0.8) K/mm3 Eos # (Auto) 0.0 (0.0-0.4) K/mm3 Baso # (Auto) 0.0 (0.0-0.1) K/mm3 Seg Neutrophils % 53.4 (40.0-70.0) % Seg Neutrophils # 2.0 (1.8-7.7) K/mm3 Sodium 137 (137-145) mmol/L Potassium 3.6 (3.6-5.0) mmol/L Chloride 101.2 (98-107) mmol/L Carbon Dioxide 26 (22-30) mmol/L Anion Gap 13 mmol/L BUN 6 L (7-17) mg/dL Creatinine 0.8 (0.6-1.2) mg/dL Estimated GFR > 60 ml/min BUN/Creatinine Ratio 8 % Glucose 118 H (65-100) mg/dL Calcium 8.7 (8.4-10.2) mg/dL Total Bilirubin < 0.20 (0.1-1.2) mg/dL AST 16 (5-40) units/L ALT 17 (7-56) units/L Alkaline Phosphatase 52 (35-129) units/L Total Protein 7.4 (6.3-8.2) g/dL Albumin 4.0 (3.9-5) g/dL Albumin/Globulin Ratio 1.2 % - Radiology Data Radiology results: report reviewed CHEST 2 VIEWS INDICATION: cough, fever. COMPARISON: 09/17/2017. FINDINGS: Support devices: Tracheostomy catheter in satisfactory position. Heart: Within normal limits. Lungs/Pleura: No acute air space or interstitial disease. No significant pleural effusion. IMPRESSION: No acute findings. - Medical Decision Making 40-year-old -[place] female patient complains of cough, fever, and congestion x4 days. Patient has history of diabetes, hypertension has a chronic trach in place. She denies any shortness of breath or chest pain. No known recent sick contacts per patient. Chest x-ray is negative for pneumonia. No elevated white count noted on CBC. Lactic acid is normal. Suspect possible COVID-19. Given trach, will cover patient for bacterial bronchitis with doxycycline. Recommend outpatient testing for [id number] list provided to patient. Discussed signs and symptoms that should prompt immediate return to the emergency department in detail with patient who verbalized understanding. Pulse ox is 98% on room air. Heart rate is 92 on repeat patient is nontoxic-appearing and she is stable for discharge home. Critical care attestation.: If time is entered above; I have spent that time in minutes in the direct care of this critically ill patient, excluding procedure time. ED Disposition Clinical Impression: Acute bacterial bronchitis, Suspected 2019 novel coronavirus infection Disposition: DC- TO HOME OR SELFCARE Is pt being admited?: No Condition: Stable Instructions: Acute Bronchitis, Adult, Prevent the Spread of COVID-19 if You Are Sick - CDC, Acute Bronchitis (ED) Prescriptions: Doxycycline Hyclate 100 mg PO BID 10 Days #20 tablet. Ibuprofen [Motrin 800 MG tab] 800 mg PO Q8HR PRN #20 tablet PRN Reason: pain/fever Referrals: PRIMARY CARE, [Primary Care Provider] - 3-5 Days
== END 2020-11-16 18:31 | disposition home or self-care (01) ==
LOC: ED 15:52
DX: J20.8 Acute bronchitis due to other specified organisms (principal); B96.89 Other specified bacterial agents as the cause of diseases classified elsewhere; I10 Essential (primary) hypertension; Z79.899 Other long term (current) drug therapy; Z88.0 Allergy status to penicillin; Z86.69 Personal history of other diseases of the nervous system and sense organs; Z98.890 Other specified postprocedural states; Z20.828 Contact with and (suspected) exposure to other viral communicable diseases
CPT/HCPCS: 36415; 71046; 80053; 85025

== ENCOUNTER 2022-01-31 21:30 | Emergency (ER) | payer OTHER ==
[2022-01-31 21:41] VITALS: BP 152/92
--- NOTE | 2022-01-31 22:16 | Emergency Department Report ---
ED General Adult HPI - General Chief complaint: Dyspnea/Respdistress Stated complaint: TRACH CLOGGED UP Time Seen by Provider: 01/31/22 21:51 Source: patient Mode of arrival: Ambulatory Limitations: Other - History of Present Illness Initial comments: CC: "Her trach is clogged up. She wants to be suctioned." HPI: This is s 42 yo female with hx of HTN, tracheostomy who presents with need from tracheostomy care. Her tracheostomy tube is clogged. She otherwise has been in her normal state of health. -: Gradual, days(s) (one day) Location: neck Severity scale (0 -10): 0 Consistency: constant Improves with: none Worsens with: none Associated Symptoms: denies other symptoms Treatments Prior to Arrival: none - Related Data Previous Rx's Medication Instructions Recorded Last Taken Type Ibuprofen [Motrin 600 MG tab] 600 mg PO Q8H PRN #30 tablet 12/08/15 Unknown Rx Multivit/Iron Sulf/Folic Acid 1 each PO DAILY #30 tablet 12/08/15 Unknown Rx [Tab-A-Sharmaine Multivit with Iron] oxyCODONE /ACETAMINOPHEN [Percocet 1 tab PO Q6HR PRN #30 tablet 12/08/15 Unknown Rx 5/325] Potassium Chloride 20 meq PO QDAY #4 packet 02/07/17 Unknown Rx Azithromycin [Zithromax Z-MITCH] 0 mg PO DAILY #6 tab 05/24/17 Unknown Rx Ibuprofen [Motrin 800 MG tab] 800 mg PO Q8HR PRN #20 tablet 05/24/17 Unknown Rx HYDROcodone/APAP 5-325 [Virgin 1 each PO Q6HR PRN #10 tablet 09/20/17 Unknown Rx 5-325 mg TAB] Acetaminophen 20 ml PO Q8H PRN #300 oral.susp 05/21/18 Unknown Rx Acetaminophen with Codeine 5 ml PO Q12H PRN 2 Days #20 05/21/18 Unknown Rx [Acetaminop-Codeine 120-12 mg/5] solution Clindamycin Palmitate HCl 20 ml PO Q8H 10 Days #600 ml 05/21/18 Unknown Rx [Clindamycin Pediatric] Doxycycline Hyclate 100 mg PO BID 10 Days #20 tablet. 11/16/20 Unknown Rx Ibuprofen [Motrin 800 MG tab] 800 mg PO Q8HR PRN #20 tablet 11/16/20 Unknown Rx Allergies Allergy/AdvReac Type Severity Reaction Status Date / Time Penicillins Allergy Swelling Verified 12/07/15 23:16 ED Review of Systems ROS: Stated complaint: TRACH CLOGGED UP Other details as noted in HPI Comment: All other systems reviewed and negative Constitutional: denies: chills, fever, malaise Respiratory: denies: cough, shortness of breath, wheezing Cardiovascular: denies: chest pain Gastrointestinal: denies: abdominal pain, nausea, vomiting ED Past Medical Hx - Past Medical History Previous Medical History?: Yes Hx Hypertension: Yes (PIH) Hx Congestive Heart Failure: No Hx Diabetes: Yes (gestational diabetes) Hx Deep Vein Thrombosis: No Hx Renal Disease: No Hx Sickle Cell Disease: No Hx Seizures: Yes (with last baby) Hx Asthma: No Hx COPD: No Hx HIV: No - Surgical History Past Surgical History?: Yes Additional Surgical History: 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 for emergency - Social History Smoking Status: Never Smoker Substance Use Type: None - Medications Home Medications: Home Medications Medication Instructions Recorded Confirmed Last Taken Type Ibuprofen [Motrin 600 MG tab] 600 mg PO Q8H PRN #30 tablet 12/08/15 Unknown Rx Multivit/Iron Sulf/Folic Acid 1 each PO DAILY #30 tablet 12/08/15 Unknown Rx [Tab-A-Sharmaine Multivit with Iron] oxyCODONE /ACETAMINOPHEN [Percocet 1 tab PO Q6HR PRN #30 tablet 12/08/15 Unknown Rx 5/325] Potassium Chloride 20 meq PO QDAY #4 packet 02/07/17 Unknown Rx Azithromycin [Zithromax Z-MITCH] 0 mg PO DAILY #6 tab 05/24/17 Unknown Rx Ibuprofen [Motrin 800 MG tab] 800 mg PO Q8HR PRN #20 tablet 05/24/17 Unknown Rx HYDROcodone/APAP 5-325 [Virgin 1 each PO Q6HR PRN #10 tablet 09/20/17 Unknown Rx 5-325 mg TAB] Acetaminophen 20 ml PO Q8H PRN #300 oral.susp 05/21/18 Unknown Rx Acetaminophen with Codeine 5 ml PO Q12H PRN 2 Days #20 05/21/18 Unknown Rx [Acetaminop-Codeine 120-12 mg/5] solution Clindamycin Palmitate HCl 20 ml PO Q8H 10 Days #600 ml 05/21/18 Unknown Rx [Clindamycin Pediatric] Doxycycline Hyclate 100 mg PO BID 10 Days #20 tablet. 11/16/20 Unknown Rx Ibuprofen [Motrin 800 MG tab] 800 mg PO Q8HR PRN #20 tablet 11/16/20 Unknown Rx ED Physical Exam - General Limitations: Other General appearance: alert, in no apparent distress - Head Head exam: Present: atraumatic, normocephalic - Eye Eye exam: Present: normal appearance - ENT ENT exam: Present: mucous membranes moist, other (tracheostomy site without surrounding erythema or purulence) - Neck Neck exam: Present: normal inspection - Respiratory Respiratory exam: Present: normal lung sounds bilaterally. Absent: respiratory distress, wheezes, rales, rhonchi - Cardiovascular Cardiovascular Exam: Present: regular rate, normal rhythm, normal heart sounds. Absent: systolic murmur, diastolic murmur, rubs, gallop - GI/Abdominal GI/Abdominal exam: Present: soft, normal bowel sounds. Absent: distended, tenderness, guarding, rebound - Extremities Exam Extremities exam: Present: normal inspection - Back Exam Back exam: Present: normal inspection - Neurological Exam Neurological exam: Present: alert, oriented X3 - Psychiatric Psychiatric exam: Present: normal affect, normal mood - Skin Skin exam: Present: warm, dry, intact, normal color. Absent: rash ED Course Vital Signs 01/31/22 21:37 Temperature 98.6 F Pulse Rate 82 Respiratory 20 Rate Blood Pressure 152/92 [Right] O2 Sat by Pulse 95 Oximetry ED Medical Decision Making - Medical Decision Making Tracheostomy care provided by respiratory therapist. Patient is discharged home. Tracheostomy tube also replaced. Critical care attestation.: If time is entered above; I have spent that time in minutes in the direct care of this critically ill patient, excluding procedure time. ED Disposition Clinical Impression: Tracheostomy care Disposition: HOME / SELF CARE / HOMELESS Is pt being admited?: No Does the pt Need Aspirin: No Condition: Stable Referrals: CHERELLE COCHRAN MD [Staff Physician] - as needed
== END 2022-02-01 05:36 | disposition home or self-care (01) ==
LOC: ED 21:30
DX: Z43.0 Encounter for attention to tracheostomy (principal); I10 Essential (primary) hypertension; E11.9 Type 2 diabetes mellitus without complications; Z88.0 Allergy status to penicillin; Z79.899 Other long term (current) drug therapy
CPT/HCPCS: 99282; 99283